=== PATIENT | female | born 1955 | race Caucasian/White ===

== ENCOUNTER → 2025-01-23 07:13 | Outpatient (REF) | payer MEDICARE, OTHER, SELFPAY | LOC: EMG 07:13 | PROVIDERS: ATTENDING PHYSICIAN Pain Medicine Interventional Pain Medicine; FAMILY PHYSICIAN Internal Medicine | DX: M54.16 Radiculopathy, lumbar region (principal) | CPT/HCPCS: 95886; 95910 ==